=== PATIENT | male | born 1960 | race Caucasian/White ===

== ENCOUNTER 2024-11-07 13:50 | Outpatient (AMB) | payer OTHER, SELFPAY ==
--- NOTE | 2024-11-07 13:58 | A.SPINEOV_ITS ---
Vital Signs 11/07/24 14:07 Height 6 ft 1 in Weight 230 lb BMI 30.3 Intake Visit Reasons: low back pain Intake Note: Mr. Saunders is here today c/o low back pain that radiates down to the buttocks. Soup Mixer Required: No Allergies No Known Allergies Allergy (Verified 11/07/24 14:08) Physical Exam Vital Signs: BMI result Body Mass Index 30.3 Assessment & Plan Assessment & Plan (1) Degenerative disc disease (DDD) of lumbosacral region with axial back pain without leg pain: Code(s): M51.370 - Other intervertebral disc degeneration, lumbosacral region with discogenic back pain only Category: Medical Plan Dear Dr. De La Torre, Thank you for referring Gume to our office today. He is a pleasant 64-year- old male who comes in today for evaluation of 2 years of low back pain with the occasional pains in his posterior buttocks/thighs. He reports that his pain began abruptly about 2 years ago. He states that he was working on his house for a few days, and was walking through his living room when he felt severe spasms in his low back leading him to remain essentially bed-bound for a few days until the pain subsided. Since this event, he has had worsening low back pain which he now rates at about a 9/10 constant. He has flare ups of pain when attempting to stand for prolonged periods of time (can only stand for about 10 minutes before he has to sit due to severe low back pain) and with positional changes such as rising from a seated position. He denies any significant thigh or leg cramping with ambulation. He denies any shooting pains down his lower extremities. He does have a pertinent past medical history of a single-level ACDF completed about [address] Awan. He reports that he has had low grade balance issues, and strong reflexes since this surgery. He is followed by our colleagues in family physiatry who have completed cortisone injections with him. They attempted a caudal epidural injection in December of 2023 but the patient did not obtain symptom relief. He more recently underwent bilateral L5 transforaminal injections on January 2024, and states he only had about 60% reduction of pain for a couple of weeks. He has been to physical therapy multiple times in the past, with minimal relief of his symptoms as a result of this. He has attempted eldo-kac-gamrdfk medications including Aleve, ibuprofen, Tylenol, and pain gel/creams. He is currently prescribed Celebrex to help mitigate some of his pain. PMH: Hypothyroidism, HTN, right sided rotator cuff repair, Hx appendectomy. Single level ACDF completed by Dr. Awan about 20 years ago for spinal cord compression. Social hx: The patient does not smoke, reports no substance use. Medications: Synthyroid, Lisinipril, HCTZ. Allergies: NKDA Physical exam: The patient has 5/5 strength in his upper and lower extremities. He ambulates well, however somewhat slowly. Gait is not obviously antalgic or spastic. He rises from a seated position slowly while bracing himself on the chair. He is able to get up onto the examination table but also does so cautiously. His reflexes are 3+ hyperactive diffusely. He has no significant sensational deficits reported to light touch on examination. (+) 3-4 beats of clonus bilateral ankles. (-) Cruz's bilaterally, (-) Babinski's bilaterally, (-) bilateral straight leg raise. Imaging review: MRI of the lumbar spine completed at [facility] in 2023 shows diffuse spondylosis of the lumbar spine. There is mild-moderate central canal stenosis and severe bilateral lateral recess stenosis at L3-4, and L4-5. There is significant degenerative disc disease with moderate central canal and severe bilateral foraminal stenosis at L5-S1. There is a paracentral posterior disc bulge at L5-S1 which is slightly effacing the ventral surface of the thecal sac. Impression: Gume is a pleasant 64-year-old male who comes in today for evaluation of 2 years of worsening low back pain. His pain is now to the point where it is present all throughout the day and is significantly affecting his ability to perform activities of daily living. Even performing basic tasks like washing the dishes has become fairly taxing for him, as he can only stand for about 5-10 minutes until he is forced to sit down due to the pain in his low back. I believe it is most likely that his symptoms are originating from the degeneration seen at L5-S1, which is accompanied by a posterior disc bulge and bilateral foraminal stenosis. After some discussion with the patient, it sounds like Dr. De La Torre is considering another round of injections to be completed here at [facility]. I encouraged the patient to schedule a follow-up to discuss this with Dr. De La Torre. I would suggest consideration of intralaminar injection at L5-S1. If the patient does not obtain good symptom relief from his next round of injections with Dr. De La Torre, he was encouraged to come back to our office for subsequent evaluation to discuss the possibility of lumbar fusion L5- S1. He understands and is agreeable to this plan. Thank you for allowing us to care for your patient. The total time spent with this visit with this patient was 45 minutes reviewing history, physical exam, MRI imaging review, and implementation of treatment plan or further diagnostic testing Car Gomez MD,PhD [facility] Coding Level of Care Code New Pt Level 4 (97507) Diagnoses Degenerative disc disease (DDD) of lumbosacral region with axial back pain without leg pain M51.370
[2024-11-07 14:07] VITALS: BMI 30.3
--- OUTSIDE RECORDS SUMMARY | 2024-11-07 14:38 | XMS_ITS | Clinical Summary ---
Author Organization [address] Address [address] [place] [phone] Phone Care Team Providers Care Buffer Chrome Name Role Phone Nida Sagastume NP Primary Care Provider [phone] Allergies No known active allergies Medications diclofenac (VOLTAREN) 1 % topical gel Apply 2 g topically 2 (two) times a day. 4 Active levothyroxine (Synthroid) 125 mcg tablet Take 1 tablet (125 mcg total) by mouth 1 (one) time each day. 90 tablet 5 Active lisinopril-hydr oCHLOROthiazide (PRINZIDE,ZESTO RETIC) 20-12.5 mg per tablet TAKE 1 TABLET DAILY 90 tablet 1 5 Active Active Problems Problem Noted Date Diagnosed Date Prediabetes 03/07/2024 Hypothyroidism 12/31/2022 Polyarthralgia 12/31/2022 Primary hypertension 12/31/2022 Immunizations Name Administration Dates Next Due Influenza Quadravalent, MDCK , 0.5ml, preservative free (Flucelvax) 6mo and older 12/31/2022 Influenza trivalent, MDCK, 0 .5mL, preservative free (Flucelvax) 6mo and older 03/07/2024 Influenza trivalent, with pr eservative (Fluzone; Afluria) 6mo and older 04/06/2020 Tdap Tetanus diptheria acell ular pertussis (Boostrix; Adacel) 7yo and older 03/07/2024 Zoster recombinant (Shingrix) 19yo and older Surgical History Surgery Date Site/Laterality Comments SHOULDER SURGERY Right PROCEDURE: HISTORICAL SHOULDER SURGERY NECK SURGERY PROCEDURE: HISTORICAL NECK SURGERY APPENDECTOMY PROCEDURE: HISTORICAL APPENDECTOMY KNEE SURGERY Bilateral PROCEDURE: HISTORICAL KNEE SURGERY Family History Medical History Relation Name Comments Hypertension Father Prostate cancer Father Stroke Father Thyroid disease Mother Thyroid disease Sister Relation Name Status Comments Father Mother Sister Social History Tobacco Use Types Packs/Day Years Used Date Smoking Tobacco: Former Cigarettes Q uit: 04/20/1998 Smokeless Tobacco: Never Alcohol Use Standard Drinks/Week Comments Not Currently 0 (1 standard drink = 0.6 oz pur e alcohol) Sex and Gender Information Value Date Recorded Sex Assigned at Not on file Legal Sex Male 8:49 PM EST Gender Identity Not on file Sexual Orientation Not on file Obstetrics History Last Filed Vital Signs Vital Sign Reading Time Taken Comments Blood Pressure 117/63 03/07/2024 2:17 PM EST A Pulse 75 03/07/2024 2:17 PM EST Temperature - - Respiratory Rate - - Oxygen Saturation - - Inhaled Oxygen Concentration - - Weight 104 kg (229 lb 12.8 oz) 03/07/2024 2:17 P M EST Height 185.4 cm (6' 1 ) 03/07/2024 2:17 PM EST Body Mass Index 30.32 03/07/2024 2:17 PM EST Plan of Treatment Health Maintenance Due Date Last Done Comments Pneumococcal Vaccine: 50+ Years (1 of 1 - PCV) 2012 Zoster Vaccines (2 of 2) 04/14/2020 02/18/2020 Social Influencers of Health Screening 05/15/2023 Depression Screening 04/20/2024 Influenza Vaccine (#1) 2024 , 12/31/2022, 04/06/2020 COVID-19 Vaccine (5 - season) 2025 07/25/2021, 03/05/2021, 06/22/2020, Additional history exists Postponed from 12/20/2023 (Patient Refused) Hypertension/CHF/CAD Annual BMP Blood Test 03/07/2025 03/07/2024, 10/12/2023, 10/12/2023 Colorectal Cancer Screening: Colonoscopy 09/30/2025 10/01/2015 Cholesterol Screening (Lipid Panel) 03/07/2029 03/07/2024, 02/25/2023 DTaP,Tdap,and Td Vaccines (2 - Td or Tdap) 03/07/2034 03/07/2024 RSV Immunization Adult Patients (1 - 1-dose 75+ series) 2037 Hepatitis C Screening Completed 04/20/2019 HIB Vaccines Aged Out No longer eligi ble based on patient's age to complete this topic HIV Screening Discontinued HPV Vaccines Aged Out No longer eligi ble based on patient's age to complete this topic Hepatitis A Vaccines Aged Out No long er eligible based on patient's age to complete this topic Hepatitis B Vaccines Aged Out No long er eligible based on patient's age to complete this topic IPV Vaccines Aged Out No longer eligi ble based on patient's age to complete this topic MMR Vaccines Aged Out No longer eligi ble based on patient's age to complete this topic Meningococcal ACWY Vaccine Aged Out N o longer eligible based on patient's age to complete this topic Meningococcal B Vaccine Aged Out No l onger eligible based on patient's age to complete this topic RSV Immunization Patients Under 20 months Aged Out No longer eligible based on patient's age to complete this topic Varicella Vaccines Aged Out No longer eligible based on patient's age to complete this topic Procedures Procedure Name Priority Date/Time Associated Diagnosis Comments COMPREHENSIVE METABOLIC PANEL Routine 03/07/2024 2:59 PM EST Prediabetes Screening for metabolic disorder LIPID PANEL WITH REFLEX TO DIRECT LDL Routine 03/07/2024 2:59 PM EST Prediabetes Screening for metabolic disorder HEPATITIS C SCREENING Routine 04/20/2019 COLONOSCOPY Routine 10/01/2015 from Last 3 Months or Most Recently Relevant to Health Maintenance Results * (ABNORMAL) Lipid panel with reflex to direct LDL (03/07/2024 2:59 PM EST) Cholesterol 209(H) 0 - 200 mg/dL LAB CHEMISTRY METHOD 03/07/2024 6:45 PM EST [facility] Triglycerides 139 0 - 150 mg/dL LAB CHEMISTRY METHOD 03/07/2024 6:45 PM EST [facility] HDL 48 >=40 mg/dL LAB CHEMISTRY METHOD 03/07/2024 6:45 PM EST [facility] LDL Calculated 133(H) 0 - 100 mg/dL LAB CHEMISTRY METHOD 03/07/2024 6:45 PM [facility] VLDL Cholesterol Aravind 27.8 mg/dL LAB CHEMISTRY METHOD 03/07/2024 6:45 PM [facility] Non HDL Chol. (LDL+VLDL) 161(H) <145 mg/dL LAB CHEMISTRY METHOD 03/07/2024 6:45 PM [facility] Chol/HDL Ratio 4.4 0.0 - 4.4 LAB CHEMISTRY METHOD 03/07/2024 6:45 PM [facility] Blood Venous blood specimen / Unknown Venipuncture / Unknown 03/07/2024 2:59 PM EST 03/07/2024 2:59 PM EST us Nida Sagastume FEED RESEARCH TECHNICIAN LAB BLOOD ORDERABLES Final Resu lt [facility] [address] [place] [address], * (ABNORMAL) Comprehensive metabolic panel (03/07/2024 2:59 PM EST) Sodium 139 133 - 145 mmol/L LAB CHEMISTRY METHOD 03/07/2024 6:45 PM [facility] Potassium 3.9 3.5 - 5.5 mmol/L LAB CHEMISTRY METHOD 03/07/2024 6:45 PM [facility] Chloride 105 96 - 110 mmol/L LAB CHEMISTRY METHOD 03/07/2024 6:45 PM [facility] CO2 30 21 - 32 mmol/L LAB CHEMISTRY METHOD 03/07/2024 6:45 PM [facility] Anion Gap 4 3 - 11 LAB CHEMISTRY METHOD 03/07/2024 6:45 PM [facility] Glucose 142(H) 70 - 100 mg/dL LAB CHEMISTRY METHOD 03/07/2024 6:45 PM [facility] BUN 22 5 - 25 mg/dL LAB CHEMISTRY METHOD 03/07/2024 6:45 PM [facility] Creatinine 1.17 0.70 - 1.30 mg/dL LAB CHEMISTRY METHOD 03/07/2024 6:45 PM [facility] eGFR 71 >=60 mL/min/1. 73m2 LAB CHEMISTRY METHOD 03/07/2024 6:45 PM [facility] Comment:Calculation based on the Chronic Kidney Disease Epidemiology Collaboration (CKD-EPI) equation refit without adjustment for race. BUN/Creatinine Ratio 18.8 LAB CHEMISTRY METHOD 03/07/2024 6:45 PM [facility] Calcium 9.2 8.5 - 10.5 mg/dL LAB CHEMISTRY METHOD 03/07/2024 6:45 PM [facility] AST (SGOT) 23 10 - 42 unit/L LAB CHEMISTRY METHOD 03/07/2024 6:45 PM [facility] ALT (SGPT) 31 10 - 60 unit/L LAB CHEMISTRY METHOD 03/07/2024 6:45 PM [facility] Alkaline Phosphatase 61 42 - 121 unit/L LAB CHEMISTRY METHOD 03/07/2024 6:45 PM [facility] Total Protein 6.9 6.0 - 8.0 g/dL LAB CHEMISTRY METHOD 03/07/2024 6:45 PM [facility] Albumin 3.9 3.2 - 5.0 g/dL LAB CHEMISTRY METHOD 03/07/2024 6:45 PM [facility] Total Bilirubin 0.4 0.0 - 1.4 mg/dL LAB CHEMISTRY METHOD 03/07/2024 6:45 PM [facility] Blood Venous blood specimen / Unknown Venipuncture / Unknown 03/07/2024 2:59 PM EST 03/07/2024 2:59 PM EST Nida Sagastume NP LAB BLOOD ORDERABLES Final [facility] [address] [place] [address], * Hepatitis C Screening (04/20/2019) Hepatitis C Screening Abstracted Historical Provider HEALTH MAINTENANCE Final Result * Colonoscopy (10/01/2015) Colonoscopy No Interpretation , Abstracted Anatomical Region Laterality Modality Other Historical Provider HEALTH MAINTENANCE Final Result from Last 3 Months or Most Recently Relevant to Health Maintenance Insurance [facility] Care Teams Buffer Chrome Relationship Specialty Start Date End Date Nida Sagastume NP [address] [place] [address] PCP - General 10/10/22
== END 2024-11-07 15:09 | disposition home or self-care (01) ==
PROVIDERS: Visit Provider Physician Assistant
DX: M51.370 Other intervertebral disc degeneration, lumbosacral region with discogenic back pain only (principal)
CPT/HCPCS: 99204